=== PATIENT | female | born 1980 | race Caucasian/White ===

== ENCOUNTER 2022-08-20 09:08 | Outpatient (CLI) | payer OTHER, SELFPAY ==
--- NOTE | 2022-08-20 11:00 | NEURO_ITS ---
Impression: # Complains of right elbow pain/numbness. # Evolving right Carpal Tunnel Syndrome. # No ulnar neuropathy. # Normal needle/EMG exam. Motor Nerve Conduction Upper Extremities Median Nerve Conduction Velocity (m/sec) Terminal Latency (msec) Response Voltage(mV) Elbow-Wrist Wrist Elbow Wrist Right 61 3.4 6 7 Left Ulnar Nerve Conduction Velocity (m/sec) Terminal Latency (msec) Response Voltage(mV) Above Elbow Below Elbow Wrist Above Elbow Below Elbow Wrist Right 59 2.2 6 7 Left F-Wave Latency Median (ms) Ulnar (ms) Right 28.9 29.3 Left Sensory Nerve Conduction Upper Extremities Median Nerve Stimulation Terminal Latency (msec) Wrist/Digit Response Voltage (uV) Wrist Right 3.1/3.1 42/43 Left Ulnar Nerve Stimulation Terminal Latency (msec) Wrist/Digit Response Voltage (uV) Wrist Right 2.3 64 Left Radial Nerve Terminal Latency (msec) Response Voltage(mV) Right 2.0 30 Left Left Right Muscles Examined Fibrillation Fasciculation Scarcity Voltage Duration Left Right Left Right Left Right Left Right Left Right Deltoid Biceps X Brachioradialis Triceps X Pronator Teres X Ext Indicis X Ext Digitorum X Abd Poll Brev X 1st Dorsal Interosseus X Abd Dig Min MTDD
== END 2022-08-20 09:09 | disposition home or self-care (01) ==
LOC: ANHNEURO 09:10
PROVIDERS: PCP Physician Assistant Medical; Visit Provider Orthopaedic Surgery
DX: G56.01 Carpal tunnel syndrome, right upper limb (principal)
CPT/HCPCS: 95886; 95909

== ENCOUNTER → 2023-09-01 07:14 | Outpatient (CLI) | payer OTHER, SELFPAY ==
--- NOTE | ~2023-09-01 | MR_ITS ---
MRI of the right elbow CLINICAL HISTORY: Pain TECHNIQUE: Proton-density and proton-density fat-sat images were acquired in the axial, coronal, and sagittal planes. FINDINGS: Ulnar collateral ligament is intact. Radial collateral ligament and the lateral ulnar colla teral ligament are intact. There is low-grade interstitial tear and/or tendinosis at the common exten sor tendon origin at the lateral epicondyle humerus. Common flexor tendon origin is intact. Bone marrow signals are unremarkable. No articular abnormality of the elbow seen. No joint effusion. Biceps, brachialis, and triceps tendons are intact. There is nonspecific soft tissue edema involving the subcutaneous soft tissues at the medial aspect of the elbow. No fluid collection evident. IMPRESSION: Nonspecific subcutaneous soft tissue edema at the medial aspect of the elbow at the site of the marke r. Correlate with physical exam. Consider focal inflammatory process or cellulitis. Low-grade interstitial tear and/or tendinosis of the common extensor tendon origin. Reviewed, dictated and finalized at location . LATOR OPERATOR IMPRESSION: Nonspecific subcutaneous soft tissue edema at the medial aspect of the elbow at the site of the marker. Correlate with physical exam. Consider focal inflammat ory process or cellulitis. Low-grade interstitial tear and/or tendinosis of the common extensor tendon glen gin.
== END ==
PROVIDERS: PCP Orthopaedic Surgery; Visit Provider Orthopaedic Surgery
DX: M79.89 Other specified soft tissue disorders (principal); M67.823 Other specified disorders of tendon, right elbow
CPT/HCPCS: 73221